=== PATIENT | male | born 1935 | race Caucasian/White ===

== ENCOUNTER 2024-07-01 12:04 | Emergency (ER) | payer MEDICARE, OTHER, SELFPAY ==
[2024-07-01] VITALS (19 sets, daily range): BP systolic 154–200; BP diastolic 74–124; PULSE 70–96; RESP 11–39; TEMP 36.4; O2SAT 93–96; BMI 28.4
[2024-07-01 12:49] LABS: Alanine Aminotransferase 27 IU/L (<50); Albumin 4.7 g/dL (3.5-5.0); Albumin Globulin Ratio 1.7 (1.0-2.8); Alkaline Phosphatase 84 U/L (38-126); Aspartate Aminotransferase 32 IU/L (17-59); BUN Creatinine Ratio 17.9 (6-22); Bilirubin Total 1.4 mg/dL (0.2-1.3); Blood Urea Nitrogen 17 mg/dL (9-20); Calcium 9.8 mg/dL (8.4-10.2); Carbon Dioxide 21 mmol/L (22-32); Chloride 108 mmol/L (98-107); Estimated Glomerular Filt Rate > 60 mL/min (>60); Globulin 2.7 g/dL (1.7-4.1); Glucose 114 mg/dL (80-110); HEMOLYSIS < 15 (0-50); Potassium 3.9 mmol/L (3.4-5.1); Sodium 141 mmol/L (137-145); Total Protein 7.4 g/dL (6.3-8.2)
--- NOTE | 2024-07-01 12:51 | EKG_ITS ---
[facility] [address] [place] [address] Test Date: 2024-07-01 Pat Name: Surjit Coronado Department: [facility] Room: Gender: Male Television Agent: VINNIE : 1935 Requested By: Order Number: [id number] Reading MD: Kyle Guardado Measurements Intervals [place] Rate: 84 P: 59 NM: 150 QRS: -60 QRSD: 92 T: 89 QT: 368 QTc: 434 Interpretive Statements Sinus rhythm with occasional premature ventricular complexes Left anterior fascicular block ST & T wave abnormality, consider lateral ischemia Electronically Signed On 07-01-2024 19:11:29 PDT by Kyle Guardado
[2024-07-01 12:52] LABS: Add Manual Diff / Slide Review NO; Basophils Absolute Auto 0 /uL (0-100); Basophils Percent Auto 0.7 % (0-2); Eosinophils Absolute Auto 100 /uL (0-450); Eosinophils Percent Auto 0.9 % (2-4); Hematocrit 47.4 % (41-53); Lymphocytes Absolute Auto 1100 /uL (1100-4500); Lymphocytes Percent Auto 16.2 % (25-40); Mean Corpuscular HGB Conc 33.8 % (30-36); Mean Corpuscular Hemoglobin 30.3 PG (26-34); Mean Corpuscular Volume 89.8 fL (80-100); Monocytes Absolute Auto 700 /uL (0-900); Monocytes Percent Auto 10.3 % (3-14); Neutrophils Absolute Auto 4800 /uL (1500-7000); Neutrophils Percent Auto 71.9 % (50-75); Platelet Count 219 X10^3/uL (150-400); Red Blood Cell Count 5.28 X10^6/uL (4.5-5.9); Red Cell Distribution Width 13.5 % (11.6-14.8); White Blood Cell Count 6.6 X10^3/uL (4.5-11.0)
[2024-07-01 13:01] LABS: Troponin I < 0.012 ng/mL (0.01-0.034)
--- NOTE | 2024-07-01 13:01 | ED.DIZZY ---
HPI - Dizziness General Chief Complaint: Dizziness Stated Complaint: Dizzy Time Seen by Provider: 07/01/24 12:57 Source: EMS Mode of arrival: EMS History of Present Illness HPI Narrative: 89-year-old gentleman history of hypertension presents with ?and ?wooziness feeling unsteady on his gait and cloudiness in his head is how he describes it. Denies fever chills stiff neck rash cough runny nose sore throat nausea vomiting diarrhea blurred vision or changes in his gait or weakness. Denies chest pain shortness of breath dyspnea on exertion leg swelling weight gain or sick contacts. Other than what is stated 14 point review of system is negative Patient History Social History Smoking Status: Never smoker Smoking Status: Never smoker Exam Initial Vital Signs Initial Vital Signs: Vital Signs Temperature 97.6 F 07/01/24 12:10 Pulse Rate 88 07/01/24 12:10 Respiratory Rate 19 07/01/24 12:10 Blood Pressure 197/92 H 07/01/24 12:10 Pulse Oximetry 96 07/01/24 12:10 Oxygen Delivery Method Room Air 07/01/24 12:10 Course Orders Ordered: ED Orders 07/01/24 12:21 EKG-12 Lead Stat 07/01/24 12:30 Complete Blood Count AUTO DIFF Stat Comprehensive Metabolic Panel Stat Troponin I Stat 07/01/24 13:02 CT angio head and neck Stat CT head/brain wo con Stat Vital Signs Vital signs: Vital Signs - 8 hr 07/01/24 12:10 07/01/24 12:14 07/01/24 12:14 Temperature 97.6 F Pulse Rate 88 96 H Respiratory Rate 19 33 H Blood Pressure 197/92 H 197/92 H Pulse Oximetry 96 96 Oxygen Delivery Method Room Air 07/01/24 12:30 07/01/24 12:31 07/01/24 12:31 Temperature Pulse Rate 94 H 93 H Respiratory Rate 32 H 30 H Blood Pressure 180/124 H Pulse Oximetry 96 94 Oxygen Delivery Method Room Air 07/01/24 12:49 07/01/24 12:49 07/01/24 13:00 Temperature Pulse Rate 86 Respiratory Rate 27 H Blood Pressure 174/86 H 169/84 H Pulse Oximetry 96 Oxygen Delivery Method 07/01/24 13:00 07/01/24 13:21 07/01/24 13:21 Temperature Pulse Rate 93 H 93 H Respiratory Rate 39 H 16 Blood Pressure 183/88 H Pulse Oximetry 95 95 Oxygen Delivery Method 07/01/24 13:30 07/01/24 13:30 07/01/24 14:00 Temperature Pulse Rate 82 80 Respiratory Rate 11 L Blood Pressure 160/75 H Pulse Oximetry 95 95 Oxygen Delivery Method Room Air 07/01/24 14:01 07/01/24 14:01 07/01/24 14:30 Temperature Pulse Rate 82 75 Respiratory Rate Blood Pressure 169/79 H Pulse Oximetry 94 95 Oxygen Delivery Method 07/01/24 14:31 07/01/24 14:31 07/01/24 15:00 Temperature Pulse Rate 78 75 77 Respiratory Rate 16 32 H Blood Pressure 154/74 H Pulse Oximetry 95 94 94 Oxygen Delivery Method Room Air 07/01/24 15:01 07/01/24 15:01 07/01/24 15:30 Temperature Pulse Rate 81 Respiratory Rate 16 Blood Pressure 167/95 H 176/90 H Pulse Oximetry 95 Oxygen Delivery Method Room Air 07/01/24 15:30 07/01/24 16:00 07/01/24 16:01 Temperature Pulse Rate 84 73 Respiratory Rate 26 H 14 Blood Pressure 200/92 H Pulse Oximetry 96 94 Oxygen Delivery Method 07/01/24 16:01 07/01/24 16:30 07/01/24 16:31 Temperature Pulse Rate 73 72 Respiratory Rate 23 22 Blood Pressure 164/78 H Pulse Oximetry 95 93 Oxygen Delivery Method Room Air 07/01/24 16:31 Temperature Pulse Rate 70 Respiratory Rate 21 Blood Pressure Pulse Oximetry 96 Oxygen Delivery Method Room Air MDM - Dizziness Lab Data 07/01/24 12:30 07/01/24 12:30 Labs: Lab Results 07/01/24 Range/Units 12:30 WBC 6.6 (4.5-11.0) X10^3/uL RBC 5.28 (4.5-5.9) X10^6/uL Hgb 16.0 (13.5-17.5) g/dL Hct 47.4 (41-53) % MCV 89.8 (80-100) fL MCH 30.3 (26-34) PG MCHC 33.8 (30-36) % RDW 13.5 (11.6-14.8) % Plt Count 219 (150-400) X10^3/uL Neut % (Auto) 71.9 (50-75) % Lymph % (Auto) 16.2 L (25-40) % [place] % (Auto) 10.3 (3-14) % Eos % (Auto) 0.9 L (2-4) % Baso % (Auto) 0.7 (0-2) % Neut # (Auto) 4800 (4901-9257) /uL Lymph # (Auto) 1100 (4892-4371) /uL Mower # (Auto) 700 (0-900) /uL Eos # (Auto) 100 (0-450) /uL Baso # (Auto) 0 (0-100) /uL Sodium 141 (137-145) mmol/L Potassium 3.9 (3.4-5.1) mmol/L Chloride 108 H (98-107) mmol/L Carbon Dioxide 21 L (22-32) mmol/L BUN 17 (9-20) mg/dL Creatinine 0.95 (0.66-1.25) mg/dL Estimated GFR > 60 (>60) mL/min BUN/Creatinine Ratio 17.9 (6-22) Glucose 114 H (80-110) mg/dL Calcium 9.8 (8.4-10.2) mg/dL Total Bilirubin 1.4 H (0.2-1.3) mg/dL AST 32 (17-59) IU/L ALT 27 (<50) IU/L Alkaline Phosphatase 84 (38-126) U/L Troponin I < 0.012 (0.01-0.034) ng/mL Total Protein 7.4 (6.3-8.2) g/dL Albumin 4.7 (3.5-5.0) g/dL Globulin 2.7 (1.7-4.1) g/dL Albumin/Globulin Ratio 1.7 (1.0-2.8) Urine Dip Bedside Urine Glucose Negative Bedside Urine Bilirubin - Negative Bedside Urine Ketone - Negative Urine Specific [place] 1.005 Bedside Urine Occult Blood - Negative Bedside Urine pH 6.5 Bedside Urine Protein - Negative Bedside Urine Urobilinogen +/- 1mg Bedside Urine Nitrite - Negative Bedside Urine Leukocytes - Negative Esterase Imaging Data CT scan - head: Radiologist's Impression: [address] [address] [address] Scan Report Signed Patient: Surjit Coronado MR#: [id number] : 1935 Acct:[id number] Age/Sex: 89 / M Date of Service: 07/01/24 Loc: ED Accession Number: [id number] Procedure: CT head/brain wo con Ordering Provider: Garrett Childers D.O. PROCEDURE: CT HEAD/BRAIN WO CON INDICATIONS: headache, dizziness TECHNIQUE: Noncontrast 4.5 mm thick angled axial sections acquired from the foramen magnum to the vertex, with coronal and sagittal reformats. For radiation dose reduction, the following was used: automated exposure control, adjustment of mA and/or kV according to patient size. COMPARISON: [facility], CT, CT ANGIO HEAD AND NECK, 07/01/2024, 13:18. FINDINGS: Image quality: Diagnostic. CSF spaces: Basal cisterns are patent. No extra-axial fluid collections. The ventricles are symmetric in size and shape. Brain: No intracranial bleeds or masses. There is cerebral volume loss for age, with resultant ventricular and sulcal prominence. There are periventricular and deep white matter chronic small vessel ischemic changes. There is intracranial internal carotid artery atherosclerosis. Skull and face: Calvarium and visualized facial bones appear intact, without suspicious lesions. Sinuses: Visualized sinuses and mastoids are clear. IMPRESSION: 1. No acute intracranial process. 2. Moderate atrophy and chronic microvascular ischemic changes. Dictated by: Debbie Awan M.D. on 07/01/2024 at 14:49 Approved by: Debbie Awan M.D. on 07/01/2024 at 14:50 PROCEDURE: CT ANGIO HEAD AND NECK INDICATIONS: headache, dizziness TECHNIQUE: After the administration of intravenous contrast, 1 mm thick sections acquired from the aortic arch through the [place] of [place]. 3-dimensional orupdwp-fzvluwfzj-jgnfciiucx (MIP) and/or volume rendering reformats were acquired of the central intracranial vasculature and neck separately. For radiation dose reduction, the following was used: automated exposure control, adjustment of mA and/or kV according to patient size. COMPARISON: [facility], CT, CT HEAD/BRAIN WO CON, 07/01/2024, 13:18. FINDINGS: Image quality: Diagnostic. BRAIN: See separately dictated CT head report of 07/01/2024. HEAD CT ANGIOGRAPHY: Anterior circulation: Intracranial internal carotid arteries are normal in size and flow. The flow within the paired anterior cerebral arteries is normal and symmetric. The flow within the middle cerebral arteries is normal and symmetric. The anterior communicating artery is seen. No aneurysms are seen. Posterior circulation: Slight left vertebral artery dominance. Visualized portions of the vertebral arteries demonstrate normal caliber, and join to form a normal appearing basilar artery. Flow within the posterior cerebral arteries is normal and symmetric. No aneurysms are seen. NECK CT ANGIOGRAPHY: Carotid system: The great vessels demonstrate a conventional anatomy as they arise from the aortic arch. The origins of the common carotid arteries appear patent. The common carotid arteries demonstrate normal caliber and courses. The bifurcation regions are both widely patent. The internal carotid arteries demonstrate normal calibers and courses. Posterior circulation: The origins of the vertebral arteries both appear widely patent. The more superior extracranial portions of both vertebral arteries also demonstrate normal courses and calibers. They join to form a normal appearing basilar artery. Soft tissues: Visualized neck soft tissues demonstrate no suspicious abnormalities. Bones: No suspicious bony lesions. Visualized cervical spine appears normally aligned. IMPRESSION: No significant intracranial arterial abnormality is seen. No significant abnormality is seen within the arteries of the neck. Any quantitative measurements of stenosis were performed using NASCET criteria. Dictated by: Debbie Awan M.D. on 07/01/2024 at 14:48 Approved by: Debbie Awan M.D. on 07/01/2024 at 14:49 ECG Data Attestation: I personally reviewed and interpreted this ECG as follows: Interpretation: NSR Hr 84 ST-twave depression V456 MA 150 QRS 92 QT 368 MDM Narrative Medical decision making narrative: All lab work EKG imaging studies all reviewed including nurse triage note old medical records medication list and vital signs. Differential diagnosis includes CVA, TIA, hypertension emergency/urgency, tumor mass, subarachnoid hemorrhage, orthostatic hypotension, electrolyte derangement. Follow up with PCP next week return with new or worsening symptoms on re-evaluation GCS of 15 nonfocal neuro exam patient feels much better Discharge Plan Departure Patient Disposition: Home Clinical Impression: Hypertensive urgency, Dizziness Instructions: Malignant Hypertension Activity Restrictions/Additional Instructions: Return with new or worsening symptoms follow up with your family doctor on Thursday Stand Alone Forms: Patient Portal/API/Survey
--- NOTE | 2024-07-01 14:41 | PC.NURSE ---
Pt up to BR multiple times independently. Steady gait noted. Denies feeling dizzy.
== END 2024-07-01 17:12 | disposition home or self-care (01) ==
PROVIDERS: Emergency Provider Family Medicine
DX: I16.0 Hypertensive urgency (principal); R42 Dizziness and giddiness; I44.4 Left anterior fascicular block
CPT/HCPCS: 70450; 70496; 70498; 80053; 81003; 84484; 85025; 93005; 99283; 99284; Q9967